=== PATIENT | male | born 1935 | race Caucasian/White ===

== ENCOUNTER 2020-03-30 18:48 | Inpatient (IN) | payer MEDICARE, BC ==
[~2020-03-30] VITALS: Ht 177.8 cm; Wt 73.5 kg
[2020-03-30 21:26] LABS: ANION GAP 11.4 mmol/L (8-16); CALCIUM 8.8 mg/dL (8.5-10.1); CARBON DIOXIDE 26.9 mmol/L (21.0-32.0); CREATININE - SERUM 1.2 mg/dL (0.6-1.3); HEMATOCRIT 37.7 % (42.0-54.0); HEMOGLOBIN 12.7 g/dL (13.5-17.5); MCH 28.6 pg (26.0-34.0); MCHC 33.7 g/dL (31.0-37.0); MCV 84.9 fL (80.0-100.0); MEAN PLATELET VOLUME 8.6 fL (7.4-10.4); NEUTROPHILS 80.3 % (40-80); PLATELET COUNT 420 10x3/uL (130-400); POTASSIUM - SERUM 3.3 mmol/L (3.5-5.1); RBC 4.44 10x6/uL (4.20-6.10); RDW 14.5 % (11.5-14.5); WBC 9.8 10x3/uL (4.8-10.8)
[2020-03-30 21:30] LABS: APTT 31.4 SECONDS (22.8-39.4); INR 0.96 (0.85-1.17); PROTIME 12.7 SECONDS (11.6-15.0)
[2020-03-30 21:32] LABS: ALBUMIN 3.5 g/dL (3.4-5.0); BILIRUBIN - TOTAL 0.48 mg/dL (0.2-1.3); PROTEIN - SERUM 7.2 g/dL (6.4-8.2)
[2020-03-31] MEDS ORDERED: KLONOPIN0.5 MG PO (00:24)
[2020-03-31] MEDS ORDERED: LISINOPRIL2.5 MG (00:26)
[2020-03-31] MEDS ORDERED: GLIMEPIRIDE2 MG PO (00:30)
[2020-03-31] MEDS ORDERED: HYDROCODON-ACE1 EA10 PO (00:33)
[2020-03-31 04:00] VITALS: BP 136/62
[2020-03-31 05:16] VITALS: BP 100/61; BMI 23.2
[2020-03-31 06:23] LABS: BASOPHILS 0.1 % (0-2); EOSINOPHILS 0.8 % (0-7); HEMATOCRIT 33.6 % (42.0-54.0); HEMOGLOBIN 11.2 g/dL (13.5-17.5); IMMATURE GRANULOCYTES 1.2 % (0-5); MCH 28.5 pg (26.0-34.0); MCHC 33.3 g/dL (31.0-37.0); MCV 85.5 fL (80.0-100.0); MONOCYTES 11.3 % (2-11); NEUTROPHILS 66.6 % (40-80); RBC 3.93 10x6/uL (4.20-6.10); RDW 14.3 % (11.5-14.5); WBC 7.5 10x3/uL (4.8-10.8)
[2020-03-31 06:33] LABS: PLATELET COUNT 330 10x3/uL (130-400)
[2020-03-31 06:45] LABS: ANION GAP 13.7 mmol/L (8-16); CALCIUM 8.7 mg/dL (8.5-10.1); CARBON DIOXIDE 24.5 mmol/L (21.0-32.0); CREATININE - SERUM 1.1 mg/dL (0.6-1.3); POTASSIUM - SERUM 3.2 mmol/L (3.5-5.1)
[2020-03-31 09:05] VITALS: BP 138/64
--- NOTE | 2020-03-31 09:30 | NUR ---
PT A&O SITTING UP IN BED. C/O PAIN 04/28, PROVIDED PAIN MEDS PER ORDER. PIV IN FOREARM, PATENT AND NON-TENDER. DRESSING ON RIGHT KNEE REMOVED. PLACED SCDS ON PT AND PROVIDED SKID FREE SOCKS. EDUCATED PT ON ISP AND CL FOR NEEDS. PT VERBALIZED UNDERSTANDING AND DENIES FURTHER NEEDS. BED LOW, RAILS X2. CL IN REACH. WILL CONTINUE TO MONITOR.
--- NOTE | 2020-03-31 10:30 | NUR ---
PT SIGNED CONSENTS FOR PROCEDURE. GAVE PREOP MEDICATIONS PER ORDER. PT BS AT 58, PREOP NURSE STATED THEY WILL GIVE PT D50 IN PREOP.
[2020-03-31 11:15] LABS: ERYTHROCYTE SEDIMENTATION RATE 10 mm/hr (0-20)
[2020-03-31 12:10] VITALS: BP 111/59
[2020-03-31 14:09] VITALS: Ht 177.8 cm; Wt 73.5 kg
--- NOTE | 2020-03-31 14:30 | NUR ---
PT C/O OF PAIN IN RIGHT KNEE, PROVIDED PAIN MEDS AND ICE BAG. PT DENIES FURTHER NEEDS. CL IN REACH. BED LOW, RAILS X2. WILL CONTINUE TO MONITOR.
[2020-03-31 18:04] VITALS: BP 113/63
--- NOTE | 2020-03-31 18:47 | NUR ---
PT C/O OF PAIN IN RIGHT KNEE. PROVIDED PAIN MEDS PER ORDER. DENIES FURTHER NEEDS. BED LOW, RAILS X2. CL IN REACH. WILL CONTINUE TO MONITOR.
--- NOTE | 2020-03-31 19:39 | NUR ---
ASSESSMENT PER FLOW SHEET, VS OBTAINED PER ANI MURRELL, IV IN RIGHT FA INTACT WITH NO REDNESS OR EDEMA INFUSING VIA PUMP KCL AT 100 ML/HR PER MD ORDERS, SEE EMAR, PT REPORTS FLATUS, NO BM AND USING THE URINAL WITH NO DIFFICULTY, DRESSING TO RIGHT LEG CDI WITH NO DRAINAGE NOTED, PT REQUESTED AND ADM TYLENOL PO PER MD ORDERS, SEE EMAR, INFORMED PT THAT I WILL ADM PAIN MED AROUND 9PM, PT VERBALIZES UNDERSTANDING, COMPLETE BEDDING CHANGE PER PT'S REQUEST, CLEAN GOWN APPLIED, SCD TO LEFT LEG ON AND WORKING PROPERLY, REQUESTED AND SERVED FRESH H20, ROOM CLEANED UP, PT DENIES FURTHER NEEDS, BED IN LOW POSITION, SIDE RAILS X 2, CALL LIGHT IN REACH
[2020-03-31 20:00] VITALS: BP 126/70
[2020-03-31 20:47] LABS: BILIRUBIN NEGATIVE (NEGATIVE); GLUCOSE NEGATIVE (NEGATIVE); KETONE NEGATIVE (NEGATIVE); NITRITE NEGATIVE (NEGATIVE); UROBILINOGEN NORMAL (NORMAL)
--- NOTE | 2020-03-31 21:07 | NUR ---
PT AWAKE, OBTAINED FSBS
--- NOTE | 2020-03-31 21:52 | NUR ---
ADM 2100 MEDS AND PAIN MED PER MD ORDERS, SEE EMAR, PT REFUSES INSULIN, SEE EMAR, FRESH H20 SERVED, DENIES FURTHER NEEDS
--- NOTE | 2020-03-31 22:26 | NUR ---
VANCOMYCIN HUNG IVPB PER MD ORDERS, SEE EMAR
--- NOTE | 2020-03-31 23:33 | NUR ---
PT AWAKE, EMPTIED 300 MLS OF YELLOW URINE FROM URINAL, DENIES NEEDS AT THIS TIME, BED IN LOW POSITION, SIDE RAILS X 2, CALL LIGHT IN REACH
[2020-04-01 00:34] VITALS: BP 130/73
--- NOTE | 2020-04-01 00:34 | NUR ---
LATE ENTRY: EMPTIED 300 MLS OF LIGHT YELLOW URINE FROM URINAL
--- NOTE | 2020-04-01 00:34 | NUR ---
PT AWAKE, REPORTS HAVING A HARD TIME FALLING ASLEEP BECAUSE HE CANNOT SLEEP ON HIS BACK, REPORTS A SLIDE SLEEPER, VS OBTAINED, ZOSYN HUNG VIA IVPB PER MD ORDERS, SEE EMAR, PT DENIES NEEDS OR PAIN AT THIS TIME, BED IN LOW POSITION, SIDE RAILS X 2, CALL LIGHT IN REACH
--- NOTE | 2020-04-01 02:30 | NUR ---
PT AWAKE, C/O RIGHT LET PAIN, ADM MORPHINE SIVP PER MD ORDERS, SEE EMAR, PT REQUESTED AND SERVED FRESH H2O, DENIES FURTHER NEEDS, BED IN LOW POSITION, SIDE RAILS X 2, CALL LIGHT IN REACH
[2020-04-01 04:00] VITALS: BP 148/67
--- NOTE | 2020-04-01 04:22 | NUR ---
PT SATELLITE INSTALLATION TECHNICIAN LIGHT, STATES "I THINK THIS LINE CAME OFF", INFORMED PT THAT IT IS FINE, THAT WAS JUST TO ANOTHER ANTIBIOTIC THAT WASN'T RUNNING AT THIS TIME", PT VERBALIZES UNDERSTANDING, DENIES FURTHER NEEDS AT THIS TIME, IV PUMP CLEARNED, BED IN LOW POSITION, SIDE RAILS X 2, CALL LIGHT IN REACH
--- NOTE | 2020-04-01 05:49 | NUR ---
PT AWAKE, C/O LAURA LEG PAIN, REPORTS BURSITIS IN LEFT LEG, ADM PAIN MED, 6AM MEDS, AND HUNG ZOSYN IVPB PER MD ORDERS, SEE EMAR, ASSISTED PT WITH CHANGING ADULT BRIEF, PT STATES "I GUESS ALL THEY HAD WAS THIS BIG ONE THAT THEY GAVE ME", PT REQUESTED AND SERVED FRESH H20, DENIES FURTHER NEEDS, BED IN LOW POSITION, SIDE RAILS X 2, CALL LIGHT IN REACH
--- NOTE | 2020-04-01 06:50 | NUR ---
PT AWAKE, DENIES NEEDS AT THIS TIME
[2020-04-01 07:48] LABS: ANION GAP 14.5 mmol/L (8-16); CALCIUM 8.2 mg/dL (8.5-10.1); CARBON DIOXIDE 22.4 mmol/L (21.0-32.0); CREATININE - SERUM 1.2 mg/dL (0.6-1.3)
[2020-04-01 07:49] LABS: POTASSIUM - SERUM 3.9 mmol/L (3.5-5.1)
[2020-04-01 08:29] LABS: HEMATOCRIT 34.2 % (42.0-54.0); HEMOGLOBIN 11.1 g/dL (13.5-17.5); MCH 28.7 pg (26.0-34.0); MCHC 32.5 g/dL (31.0-37.0); MEAN PLATELET VOLUME 8.9 fL (7.4-10.4); RBC 3.87 10x6/uL (4.20-6.10); RDW 14.5 % (11.5-14.5); WBC 8.9 10x3/uL (4.8-10.8)
[2020-04-01 08:31] LABS: MCV 88.4 fL (80.0-100.0)
--- NOTE | 2020-04-01 09:15 | OP ---
PATIENT NAME: DEREK ADAIR MEDICAL RECORD: [id number] :35 LOCATION:D.MS [id number] ADMISSION DATE:03/30/20 SURGEON: DARLENE ADLER MD DATE OF OPERATION: 03/31/2020 PREOPERATIVE DIAGNOSIS: Exposed hardware with skin breakdown, right knee. POSTOPERATIVE DIAGNOSIS: Exposed hardware with skin breakdown, right knee. PROCEDURES: 1. I&D of open wound with removal of hardware. 2. Primary closure. SILK WORKER: Darlene Adler MD FANCY PACKER: ELPIDIO Gerber INTRAOPERATIVE COMPLICATIONS: Essentially none. SUMMARY OF PATHOLOGIC FINDINGS: The patient had obvious skin breakdown over his previously placed lateral tibial plateau plate. The patient has developed severe varus arthritis and eventually, the skin eroded through. While it did not appear to be overtly infectious, it is treated thusly. Therefore, after the plate was removed, the area was copiously irrigated and cleared of debris with a scalpel, rongeur, and curettage. OPERATIVE SUMMARY IN DETAIL: After obtaining the appropriate preoperative orthopedic surgery consent as well as anesthetic consultation, evaluation, and clearance, the patient was brought to the operating room and placed on the operating table in the supine position. After adequate general laryngeal mask airway was administered, a tourniquet was placed about the proximal aspect of the right lower extremity. Note it was not used during the case. Right lower extremity was then prepped and draped in a routine sterile fashion. At this point, the appropriate time-out was taken and agreed upon by all given the patient's unique identifiers. A small elliptical incision was made about the area of skin necrosis and the incision was elongated distally and posteriorly and laterally to expose the plate. After the plate was entirely exposed under fluoroscopic guidance, every screw was removed along with the hardware. A posterior medial plate was left in situ as it did not appear to be involved in any way with the current wound. After the wound was irrigated, it was closed with #1 Vicryl and 3-0 Prolene by ELPIDIO Gerber. Sterile dressings were applied. The patient was awakened and taken to the recovery room in stable condition. All final needle and sponge counts were correct. NTS:[id number] Voice Confirmation ID: [id number] DOCUMENT ID: [id number] DARLENE ADLER MD at 0915 CC: [id number] DICTATION DATE: 03/31/20 1136 INVOICE CLERK: 03/31/20 2215 ADM IN [facility] [address] [id number]
--- NOTE | 2020-04-01 09:30 | NUR ---
PT SITTING UP IN BED, A&O X4. PIV IN RIGHT AC, APPEARS TO BE INFILTRATED. D/C PIV AND WILL RESITE. SOFT CAST ON R KNEE, DAY ONE POSTOP I&D, WITH HARDWARE REMOVAL. PT C/O PAIN IN R KNEE AND PAIN IN LEFT HIP FROM BRUSITIS. PROVIDED PAIN MEDS PER ORDER. PT HAS SCD ON LEFT LEG. EDUCATED PT ON REMAINING OFF OF RIGHT LEG UNTIL PHYSICAL THERAPY COMES TO ASSES. EDUCATED PT ON CL AND PT VERBALIZED UNDERSTANDING. BED LOW, RAILS X2. CL IN REACH. PT DENIES FURTHER NEEDS. WILL CONTINUE TO MONITOR.
[2020-04-01 09:35] VITALS: BP 130/69
--- NOTE | 2020-04-01 12:33 | NUR ---
PT APPEARS TO BE CONFUSED. HE IS ORIENTATED TO PERSON, PLACE, AND SITUATION. HE DOESNT REMEMBER WHEN HE GOT HERE OR WHEN HE WENT TO S. I REORIENTATED HIM AND WILL CONTINUE TO MONITOR.
[2020-04-01 13:17] VITALS: BP 151/64
--- NOTE | 2020-04-01 17:17 | MORECARE ---
CASE MANAGEMENT DISCHARGE SUMMARY PATIENT: DEREK ADAIR UNIT: [id number] ADM DATE: 03/30/20 AGE: 84 : 35 SEX: M ROOM/BED: D.2208 AUTHOR: JON LORENZO PHYSICIAN: REFERRING PHYSICIAN: ROSSANA PIERCE MD DATE OF SERVICE: 04/01/20 Discharge Plan Patient Name: DEREK ADAIR Facility: [facility]:[place] : 1935 Planned Disposition: Swing Bed (Medicare Approved) Anticipated Discharge Date: Discharge Date: Expected LOS: Initial Reviewer: [email or web address] Initial Review Date: 03/30/2020 Generated: 04/01/20 6:16 pm Comments DCP- Discharge Planning Updated by [email or web address]: Altagracia Gomez on 04/01/20 4:[address] RECEIVED A CALL FROM [facility] ( FROM [facility] IN [place]) [phone] EXT [phone], SHE STATED THAT SHE HAS SPOKEN TO HIS AND WILL TAKE HIM BACK TO A SWING BED WHEN HE IS STABLE TO DC BACK TO THEM. I HAVE FAXED CLINICAL OVER TO HER AT [phone] [facility] [phone] EXT [phone] FAX External Providers External Provider: [facility] Next Contact Date: Service Request Date: Service Type: Resolution: Reviewer: Comments: Patient Name: DEREK ADAIR Page [phone] at 1717 All edits/amendments must be made on the electronic document DICTATION DATE: 04/01/201715 BEAM DYER RECESSED VAT: CHINEDU 04/01/201715 RPT#: [id number] DC DATE: STATUS: ADM IN [facility] [address] [place] [address] END OF REPORT
[2020-04-01 17:47] VITALS: BP 136/59
[2020-04-01 20:00] VITALS: BP 155/73
--- NOTE | 2020-04-02 03:07 | NUR ---
I have reviewed this patient and I concur with the Shift Assessment completed by the Licensed Practical Nurse today this shift.
[2020-04-02 04:00] VITALS: BP 133/64
[2020-04-02 06:44] LABS: HEMATOCRIT 35.4 % (42.0-54.0); HEMOGLOBIN 11.7 g/dL (13.5-17.5); LYMPHOCYTES 25.5 % (15-50); MCH 29.1 pg (26.0-34.0); MCHC 33.1 g/dL (31.0-37.0); MCV 88.1 fL (80.0-100.0); MEAN PLATELET VOLUME 8.6 fL (7.4-10.4); NEUTROPHILS 64.4 % (40-80); PLATELET COUNT 404 10x3/uL (130-400); RBC 4.02 10x6/uL (4.20-6.10); RDW 14.5 % (11.5-14.5)
[2020-04-02 06:45] LABS: WBC 6.2 10x3/uL (4.8-10.8)
[2020-04-02 07:09] LABS: CALC OSMOLALITY 266 mosm/kg (275-300); CALCIUM 8.3 mg/dL (8.5-10.1); CARBON DIOXIDE 23.9 mmol/L (21.0-32.0); CHLORIDE - SERUM 102 mmol/L (98-107); CREATININE - SERUM 0.9 mg/dL (0.6-1.3); GLUCOSE 99 mg/dL (74-106); MAGNESIUM - SERUM 2.1 mg/dL (1.8-2.4); POTASSIUM - SERUM 3.3 mmol/L (3.5-5.1); SODIUM 134 mmol/L (136-145); UREA NITROGEN 9 mg/dL (7-18); eGFR NON AFRICAN AMERICAN 85 mL/min (90-120)
[2020-04-02] MEDS ORDERED: VIBRAMYCIN 100100 MG PO ×2 (07:36→11:10)
[2020-04-02 09:07] VITALS: BP 129/49
--- NOTE | 2020-04-02 09:07 | MORECARE ---
CASE MANAGEMENT DISCHARGE SUMMARY PATIENT: DEREK ADAIR UNIT: [id number] ADM DATE: 03/30/20 AGE: 84 : 35 SEX: M ROOM/BED: D.2208 AUTHOR: MAURA,DOC PHYSICIAN: REFERRING PHYSICIAN: ROSSANA PIERCE MD DATE OF SERVICE: 04/02/20 Discharge Plan Patient Name: DEREK ADAIR Facility: [facility]:[place] : 1935 Planned Disposition: Swing Bed (Medicare Approved) Anticipated Discharge Date: Discharge Date: Expected LOS: Initial Reviewer: [email or web address] Initial Review Date: 03/30/2020 Generated: 04/02/20 10:06 am Comments DCP- Discharge Planning Updated by [email or web address]: Altagracia Gomez on 04/02/20 8:[address] I MET WITH PATIENT ABOUT TRANSFERING BACK TO [facility] TODAY. HE IS VERY MUCH AGREEABLE TO THIS. HE IS GOING TO A SWING BED. HE WILL GO TO ROOM 23 AND THE ACCEPTING MD IS DR ALEXIS AGUILAR I DID HAVE HIM SIGN A RUBIA AND AN IMM DCP- Discharge Planning Updated by [email or web address]: Altagracia Gomez on 04/01/20 4:[address] RECEIVED A CALL FROM DION MCCORMICK ( CM FROM [facility]) [phone] EXT [phone], SHE STATED THAT SHE HAS SPOKEN TO HIS AND WILL TAKE HIM BACK TO A SWING BED WHEN HE IS STABLE TO DC BACK TO THEM. I HAVE FAXED CLINICAL OVER TO HER AT [phone] [facility] [phone] EXT [phone] FAX DCPIA - Discharge Planning Initial Assessment Updated by [email or web address]: Altagracia Gomez on 04/02/20 9:01 am * PCP NOLBERTO * Pharmacy [facility] * Preadmission Environment Acute Care Facility * Facility Name [facility] * ADLs Independent * Equipment Rolling Walker * List name and contact numbers for known caregivers / representatives who currently or will assist patient after discharge: MATT ( ) [phone] * Verbal permission to speak to the caregivers and representatives has been obtained from the patient. Yes * Community resources currently utilized None * Additional services required to return to the preadmission environment? Yes * Can the patient safely return to the preadmission environment? Yes * Has this patient been hospitalized within the prior 30 days at any hospital? Yes Coverage Notice Reviewer: [id number] Brennan Gomez Notice Issued Date-Time: 04/02/2020 9:00 Notice Type: Patient Choice Letter Notice Delivered To: Patient Relationship to Patient: Dehydrator Tender Name: Delivery Method: - Sharonda Days: Prior Verbal Notification: Recipient Understood Notice: Recipient Signature: Med Rec Note Co-signed by Attending: Coverage Notice Comment: Last DP export: 04/01/20 4:17 p Patient Name: DEREK ADAIR Page [phone] at 0907 All edits/amendments must be made on the electronic document DICTATION DATE: 04/02/20905 FINISH PHOTOGRAPHER: CHINEDU 04/02/20905 RPT#: [id number] DC DATE: STATUS: ADM IN [facility] [address] [place] [address] END OF REPORT
[2020-04-02 09:51] LABS: ERYTHROCYTE SEDIMENTATION RATE 36 mm/hr (0-20)
[2020-04-02] MEDS ORDERED: ELIQUIS2.5 MG PO (10:19)
[2020-04-02] MEDS ORDERED: PROTONIX40 MG PO (11:10)
[2020-04-02] MEDS ORDERED: ZOSYN 3.3753.375 G1 IVPB (11:10)
[2020-04-02] MEDS ORDERED: FLORAJEN3 CAPS460 MG PO (11:10)
[2020-04-02] MEDS ORDERED: THERMOTABS 1 GM1 GM PO (11:10)
[2020-04-02] MEDS ORDERED: VANCOMYCIN 1 GM/1 G1 IV (11:13)
--- NOTE | 2020-04-02 13:05 | NUR ---
I have reviewed this patient and I concur with the Shift Assessment completed by the Licensed Practical Nurse today this shift.
--- NOTE | 2020-04-02 15:15 | NUR ---
DISCHARGED PATIENT TO [facility] BY AMBULANCE VIA STRETCHER. DISCONTINUED IV, CATHETER TIP INTACT. WENT OVER DISCHARGE INSTRUCTIONS WITH PATIENT, VERBALIZED UNDERSTANDING. CALLED REPORT TO TODD BENSON. DENIES ANYTHING FURTHER.
--- NOTE | 2020-04-03 01:34 | MORECARE ---
CASE MANAGEMENT DISCHARGE SUMMARY PATIENT: DEREK ADAIR UNIT: [id number] ADM DATE: 03/30/20 AGE: 84 : 35 SEX: M ROOM/BED: D.2208 AUTHOR: MAURA,DOC PHYSICIAN: REFERRING PHYSICIAN: ROSSANA PIERCE MD DATE OF SERVICE: 04/03/20 Discharge Plan Patient Name: DEREK ADAIR Facility: [facility]:[place] : 1935 Planned Disposition: Swing Bed (Medicare Approved) Anticipated Discharge Date: Discharge Date: 04/02/2020 Expected LOS: Initial Reviewer: [email or web address] Initial Review Date: 03/30/2020 Generated: 04/03/20 2:33 am Comments DCP- Discharge Planning Updated by [id number]: Altagracia Gomez on 04/02/20 8:[address] I MET WITH PATIENT ABOUT TRANSFERING BACK TO [facility] TODAY. HE IS VERY MUCH AGREEABLE TO THIS. HE IS GOING TO A SWING BED. HE WILL GO TO ROOM 23 AND THE ACCEPTING MD IS DR ALEXIS AGUILAR I DID HAVE HIM SIGN A RUBIA AND AN IMM DCP- Discharge Planning Updated by [email or web address]: Altagracia Gomez on 04/01/20 4:[address] RECEIVED A CALL FROM DION MCCORMICK ( CM FROM [facility]) [phone] EXT [phone], SHE STATED THAT SHE HAS SPOKEN TO HIS AND WILL TAKE HIM BACK TO A SWING BED WHEN HE IS STABLE TO DC BACK TO THEM. I HAVE FAXED CLINICAL OVER TO HER AT [phone] [facility] [phone] EXT [phone] FAX DCPIA - Discharge Planning Initial Assessment Updated by [id number]: Altagracia Gomez on 04/02/20 9:01 am * PCP NOLBERTO * Pharmacy [facility] * Preadmission Environment Acute Care Facility * Facility Name [facility] * ADLs Independent * Equipment Rolling Walker * List name and contact numbers for known caregivers / representatives who currently or will assist patient after discharge: MATT ( ) [phone] * Verbal permission to speak to the caregivers and representatives has been obtained from the patient. Yes * Community resources currently utilized None * Additional services required to return to the preadmission environment? Yes * Can the patient safely return to the preadmission environment? Yes * Has this patient been hospitalized within the prior 30 days at any hospital? Yes Coverage Notice Reviewer: [id number] Brennan Gomez Notice Issued Date-Time: 04/02/2020 9:00 Notice Type: Patient Choice Letter Notice Delivered To: Patient Relationship to Patient: Auto Claims Adjuster Name: Delivery Method: HAND - Hand Delivered Sharonda Days: Prior Verbal Notification: Recipient Understood Notice: Yes Recipient Signature: Yes Med Rec Note Co-signed by Attending: Coverage Notice Comment: INEZ PRATER Reviewer: [id number] Brennan Gomez Notice Issued Date-Time: 04/02/2020 9:00 Notice Type: IM Discharge Notice Notice Delivered To: Patient Relationship to Patient: Auto Claims Adjuster Name: Delivery Method: HAND - Hand Delivered Sharonda Days: Prior Verbal Notification: Recipient Understood Notice: Yes Recipient Signature: Yes Med Rec Note Co-signed by Attending: Coverage Notice Comment: Last DP export: 04/02/20 8:07 a Patient Name: DEREK ADAIR Page [phone] at 0134 All edits/amendments must be made on the electronic document DICTATION DATE: 04/03/20133 PUBLIC RELATIONS ACCOUNT EXECUTIVE: CHINEDU 04/03/20133 RPT#: [id number] DC DATE:04/02/20 STATUS: DIS IN [facility] [address] [place] [address] END OF REPORT
== END 2020-04-02 15:17 | DRG 605 ==
LOC: D.ER 18:48 → D.MS 22:34
PROVIDERS: Emergency Medicine; Family Medicine; Orthopaedic Surgery; ADMIT Family Medicine Adult Medicine; ATTEND Family Medicine Adult Medicine
PROC: 0YP90YZ Removal of Other Device from Right Lower Extremity, Open Approach (ICD-10-PCS; principal; 2020-03-31 14:00)
DX: S81.001A Unspecified open wound, right knee, initial encounter (principal); M86.9 Osteomyelitis, unspecified; E87.1 Hypo-osmolality and hyponatremia; W19.XXXA Unspecified fall, initial encounter; D64.9 Anemia, unspecified; E87.6 Hypokalemia; E11.649 Type 2 diabetes mellitus with hypoglycemia without coma; I10 Essential (primary) hypertension